=== PATIENT | female | born 1955 | race Caucasian/White ===

== ENCOUNTER 2017-11-05 10:33 | Inpatient (IN) | payer OTHER ==
[~2017-11-05] VITALS: Ht 172.7 cm; Wt 121.6 kg
[2017-11-05] VITALS (7 sets, daily range): BP systolic 89–114; BP diastolic 46–57; Ht 172.7 cm; Wt 121.6 kg
[2017-11-05 11:39] LABS: PLATELET COUNT 224 x10^3mcL (130-400); RED CELL DISTRIBUTION WIDTH 13.2 % (11.5-14.5)
[2017-11-05 12:00] LABS: ALKALINE PHOSPHATASE 84 U/L (46-116); ALT/SGPT 33 U/L (14-59); AST/SGOT 25 U/L (15-37); BILIRUBIN TOTAL 0.9 mg/dL (0.20-1.00); CALCIUM 8.6 mg/dL (8.5-10.1); CARBON DIOXIDE 29.4 mmol/L (21-32); CHLORIDE SERUM 99 mmol/L (98-107); CREATININE SERUM 0.9 mg/dL (0.6-1.0); GFR1 > 60 mL/min; GLUCOSE SERUM 128 mg/dL (74-106); SODIUM SERUM 136 mmol/L (136-145); TOTAL PROTEIN, SERUM 7.3 g/dL (6.4-8.2)
[2017-11-05 12:04] LABS: POTASSIUM SERUM 2.7 mmol/L (3.5-5.1)
[2017-11-05 12:15] LABS: BAND NEUTROPHIL 3 % (0-10); BASOPHIL 0 % (0-2); MONOCYTE 4 % (0-7); SEGMENTED NEUTROPHILS 91 % (37-75)
[2017-11-05 12:16] LABS: rbc morphology (normal/abnorm) ABNORMAL (NORMAL)
[2017-11-05 12:18] LABS: PLATELET MORPHOLOGY PLATELETS NORMAL
[2017-11-05] MEDS ORDERED: ZOL100 PO (12:30)
[2017-11-05] MEDS ORDERED: PRE15 PO (12:31)
[2017-11-05] MEDS ORDERED: BAYER ASPIRIN C81 MG PO (12:31)
[2017-11-05] MEDS ORDERED: FLECAINIDE ACE100 MG PO (12:31)
[2017-11-05] MEDS ORDERED: HYDROCHLOROTHIA25 MG PO (12:31)
[2017-11-05] MEDS ORDERED: [UNRECOGNIZED DRUG - OTHER] PO (12:32)
[2017-11-05] MEDS ORDERED: MASON NATURAL1000 IU PO (12:32)
[2017-11-05] MEDS ORDERED: GLUCOSAMINE1000 MG PO (12:33)
[2017-11-05] MEDS ORDERED: BIOTIN PLUS KE1 EACH PO (12:33)
[2017-11-05] MEDS ORDERED: L-LYSINE600 MG PO (12:33)
[2017-11-05 13:13] LABS: MAGNESIUM 1.5 mg/dL (1.8-2.4); PHOSPHOROUS 2.8 mg/dL (2.5-4.9)
[2017-11-05 13:19] LABS: CHOLESTEROL/HDL RATIO 2.2; T3 TOTAL 0.52 ng/mL
[2017-11-05 13:52] LABS: FREE T4 1.04 ng/dL (0.76-1.46); FREE THYROXINE INDEX 2.2 ug/dL (1.4-4.5); T4(THYROXINE) 6.3 ug/dL (4.7-13.3)
[2017-11-05 21:09] LABS: CALCIUM 7.3 mg/dL (8.5-10.1); CARBON DIOXIDE 20.5 mmol/L (21-32); CHLORIDE SERUM 106 mmol/L (98-107); CREATININE SERUM 0.9 mg/dL (0.6-1.0); GFR1 > 60 mL/min; GLUCOSE SERUM 128 mg/dL (74-106); SODIUM SERUM 138 mmol/L (136-145)
[2017-11-05 21:12] LABS: microscopic required? YES; urine erythrocyte TRACE (NEGATIVE)
[2017-11-05 21:17] LABS: POTASSIUM SERUM 2.7 mmol/L (3.5-5.1)
[2017-11-05 22:06] LABS: AMPHETAMINE QUAL UR NONE DETECTED (NEG <=1000)
[2017-11-06 05:55] VITALS: BP 109/61
[2017-11-06 05:58] LABS: PLATELET COUNT 167 x10^3mcL (130-400)
[2017-11-06 06:22] LABS: CALCIUM 7.6 mg/dL (8.5-10.1); CARBON DIOXIDE 23.8 mmol/L (21-32); CHLORIDE SERUM 106 mmol/L (98-107); CREATININE SERUM 0.8 mg/dL (0.6-1.0); GFR1 > 60 mL/min; GLUCOSE SERUM 98 mg/dL (74-106); MAGNESIUM 1.8 mg/dL (1.8-2.4); SODIUM SERUM 138 mmol/L (136-145)
[2017-11-06 06:24] LABS: RED CELL DISTRIBUTION WIDTH 14.6 % (11.5-14.5)
[2017-11-06 06:33] LABS: POTASSIUM SERUM 2.8 mmol/L (3.5-5.1)
[2017-11-06 08:17] LABS: CARBON DIOXIDE 22.5 mmol/L (21-32); CHLORIDE SERUM 107 mmol/L (98-107); CREATININE SERUM 0.7 mg/dL (0.6-1.0); GFR1 > 60 mL/min; GLUCOSE SERUM 111 mg/dL (74-106); SODIUM SERUM 140 mmol/L (136-145)
[2017-11-06 08:28] LABS: POTASSIUM SERUM 2.9 mmol/L (3.5-5.1)
[2017-11-06 10:15] LABS: BAND NEUTROPHIL 4 % (0-10); MONOCYTE 4 % (0-7); PLATELET MORPHOLOGY PLATELETS NORMAL; SEGMENTED NEUTROPHILS 85 % (37-75); rbc morphology (normal/abnorm) NORMAL (NORMAL)
[2017-11-06 10:16] VITALS: BP 127/58
[2017-11-06 13:07] VITALS: BP 132/96
[2017-11-06 15:34] LABS: CALCIUM 7.8 mg/dL (8.5-10.1); CARBON DIOXIDE 19.9 mmol/L (21-32); CHLORIDE SERUM 106 mmol/L (98-107); CREATININE SERUM 0.7 mg/dL (0.6-1.0); GFR1 > 60 mL/min; GLUCOSE SERUM 109 mg/dL (74-106); POTASSIUM SERUM 3.5 mmol/L (3.5-5.1); SODIUM SERUM 138 mmol/L (136-145)
[2017-11-06 16:56] VITALS: BP 120/73
[2017-11-06 20:33] VITALS: BP 138/78
[2017-11-07 05:43] VITALS: BP 123/69
[2017-11-07 06:49] LABS: BASOPHIL % 0.2 % (0-2); PLATELET COUNT 178 x10^3mcL (130-400); RED CELL DISTRIBUTION WIDTH 14.5 % (11.5-14.5)
[2017-11-07 07:11] LABS: CALCIUM 8.2 mg/dL (8.5-10.1); CARBON DIOXIDE 21.6 mmol/L (21-32); CHLORIDE SERUM 106 mmol/L (98-107); CREATININE SERUM 0.6 mg/dL (0.6-1.0); GFR1 > 60 mL/min; GLUCOSE SERUM 111 mg/dL (74-106); MAGNESIUM 1.7 mg/dL (1.8-2.4); PHOSPHOROUS 2.3 mg/dL (2.5-4.9); POTASSIUM SERUM 3.7 mmol/L (3.5-5.1); SODIUM SERUM 137 mmol/L (136-145)
[2017-11-07 09:38] VITALS: BP 129/62
[2017-11-07 13:28] VITALS: BP 97/61
[2017-11-07 17:31] VITALS: BP 123/59
[2017-11-08 05:32] VITALS: BP 142/59
[2017-11-08 07:29] LABS: BASOPHIL % 0.1 % (0-2); PLATELET COUNT 199 x10^3mcL (130-400)
[2017-11-08 07:30] LABS: RED CELL DISTRIBUTION WIDTH 14.6 % (11.5-14.5)
[2017-11-08 07:48] LABS: CALCIUM 8.4 mg/dL (8.5-10.1); CARBON DIOXIDE 22.6 mmol/L (21-32); CHLORIDE SERUM 105 mmol/L (98-107); CREATININE SERUM 0.6 mg/dL (0.6-1.0); GFR1 > 60 mL/min; GLUCOSE SERUM 114 mg/dL (74-106); MAGNESIUM 1.9 mg/dL (1.8-2.4); PHOSPHOROUS 2.9 mg/dL (2.5-4.9); POTASSIUM SERUM 3.6 mmol/L (3.5-5.1); SODIUM SERUM 137 mmol/L (136-145)
[2017-11-08 10:02] VITALS: BP 122/56
[2017-11-08 13:35] VITALS: BP 126/67
[2017-11-08 18:00] VITALS: BP 142/80
[2017-11-08 20:30] VITALS: BP 130/71
[2017-11-09 06:06] VITALS: BP 127/70
[2017-11-09 09:35] VITALS: BP 114/70
[2017-11-09 13:23] VITALS: BP 141/82
[2017-11-09 17:20] VITALS: BP 125/65
[2017-11-09 18:03] VITALS: BP 125/65
[2017-11-09 21:10] VITALS: BP 152/79
[2017-11-10 06:09] VITALS: BP 135/75
[2017-11-10 08:10] LABS: CALCIUM 8.2 mg/dL (8.5-10.1); CARBON DIOXIDE 27.6 mmol/L (21-32); CHLORIDE SERUM 103 mmol/L (98-107); CREATININE SERUM 0.6 mg/dL (0.6-1.0); GFR1 > 60 mL/min; GLUCOSE SERUM 87 mg/dL (74-106); POTASSIUM SERUM 3.5 mmol/L (3.5-5.1); SODIUM SERUM 139 mmol/L (136-145)
[2017-11-10 08:23] LABS: BASOPHIL % 0.3 % (0-2); PLATELET COUNT 222 x10^3mcL (130-400)
[2017-11-10 08:50] LABS: RED CELL DISTRIBUTION WIDTH 14.6 % (11.5-14.5)
[2017-11-10 09:22] VITALS: BP 120/64
[2017-11-10 12:09] VITALS: BP 143/67
[2017-11-10 16:12] VITALS: BP 129/75
[2017-11-10 21:27] VITALS: BP 149/74
[2017-11-11 06:45] VITALS: BP 147/84
[2017-11-11 07:15] LABS: BASOPHIL % 0.3 % (0-2); PLATELET COUNT 235 x10^3mcL (130-400)
[2017-11-11 07:37] LABS: CALCIUM 8.6 mg/dL (8.5-10.1); CARBON DIOXIDE 28.6 mmol/L (21-32); CHLORIDE SERUM 103 mmol/L (98-107); CREATININE SERUM 0.6 mg/dL (0.6-1.0); GFR1 > 60 mL/min; GLUCOSE SERUM 85 mg/dL (74-106); MAGNESIUM 1.6 mg/dL (1.8-2.4); PHOSPHOROUS 4.9 mg/dL (2.5-4.9); POTASSIUM SERUM 3.6 mmol/L (3.5-5.1); SODIUM SERUM 140 mmol/L (136-145)
[2017-11-11 08:36] LABS: RED CELL DISTRIBUTION WIDTH 14.6 % (11.5-14.5)
[2017-11-11 10:08] VITALS: BP 136/88
[2017-11-11] MEDS ORDERED: LIO10 PO (13:16)
[2017-11-11] MEDS ORDERED: CLEOCIN HCL300 MG PO (13:17)
[2017-11-11] MEDS ORDERED: LEVAQUIN750 MG PO (13:17)
[2017-11-11] MEDS ORDERED: MEDROL DOSEPAK4 MG PO (13:19)
[2017-11-11] MEDS ORDERED: LAC PO (13:19)
[2017-11-11 14:19] VITALS: BP 125/69
== END 2017-11-11 16:54 | disposition home or self-care (01) | DRG 871 ==
LOC: ED 10:33 → DU 12:21
PROVIDERS: Emergency Medicine; Family Medicine Sports Medicine; ADMIT Family Medicine
DX: A41.9 Sepsis, unspecified organism (principal); J69.0 Pneumonitis due to inhalation of food and vomit; N17.0 Acute kidney failure with tubular necrosis; E44.0 Moderate protein-calorie malnutrition; Z68.41 Body mass index [BMI] 40.0-44.9, adult; N39.0 Urinary tract infection, site not specified; I42.9 Cardiomyopathy, unspecified; E87.6 Hypokalemia; R73.03 Prediabetes; H81.09 Meniere's disease, unspecified ear; M19.90 Unspecified osteoarthritis, unspecified site; G43.909 Migraine, unspecified, not intractable, without status migrainosus; K21.9 Gastro-esophageal reflux disease without esophagitis; R31.9 Hematuria, unspecified; E83.42 Hypomagnesemia; E66.01 Morbid (severe) obesity due to excess calories; Z79.82 Long term (current) use of aspirin; Z79.899 Other long term (current) drug therapy
CPT/HCPCS: 36600; 82962; 83880; 84439; 85378; 87804; 94150; J0456; J0696; J1100; J1644; J1885; J1940; J1956; J2405; J2920; J2930; J3475; J3480; J3490; J7030; J7040; J7613; J7620; Q0092; Q9967